=== PATIENT | male | born 1970 ===

== ENCOUNTER 2016-07-20 13:32 | Emergency (ER) | payer MEDICAID, OTHER ==
[2016-07-20 13:51] VITALS: BMI 27.3
[2016-07-20 13:56] VITALS: O2SAT 98
[2016-07-20] MEDS ORDERED: Sodium Chloride 0.9% 1,000 ML IV STA (15:42)
[2016-07-20] MEDS ORDERED: Sodium Chloride 0.9% 1,000 ML ONE (15:50)
[2016-07-20 16:04] LABS: BASO # 0.1 K/uL (0.0-0.2); BASO % 0.7 % (0.0-2.0); EOS # 0.3 K/uL (0.0-0.7); EOS % 3.5 % (0.0-4.0); HEMATOCRIT 43.3 % (35.0-51.0); LYMPH # 2.2 K/uL (1.0-4.3); LYMPH % 23.8 % (20.0-40.0); MEAN CELL VOLUME 83.7 fL (80.0-94.0); MEAN CORPUSCULAR HEMOGLOBIN 27.7 pg (27.0-31.0); MEAN CORPUSCULAR HGB CONC 33.1 g/dL (33.0-37.0); MEAN PLATELET VOLUME 10.5 fL (7.2-11.7); MONO # 0.8 K/uL (0.0-0.8); NRBC % 0.1 % (0.0-2.0); RED CELL DISTRIBUTION WIDTH 13.4 % (11.5-14.5); WHITE BLOOD COUNT 9.3 K/uL (4.8-10.8)
[2016-07-20 16:10] LABS: RBC URINE 4 /hpf (0-3); URINE BACTERIA RARE (<OCC); URINE BILIRUBIN NEGATIVE (NEGATIVE); URINE BLOOD NEGATIVE (NEGATIVE); URINE COLOR Yellow (YELLOW); URINE GLUCOSE (UA) NORMAL (Normal); URINE KETONE NEGATIVE (NEGATIVE); URINE LEUKOCYTE ESTERASE NEG Leu/uL (Negative); URINE PROTEIN NEGATIVE (NEGATIVE); URINE UROBILINOGEN NORMAL mg/dL (0.2-1.0)
[2016-07-20 16:13] LABS: CHLORIDE 100 mmol/L (98-107); SODIUM 138 mmol/L (132-148)
[2016-07-20 16:16] LABS: ALB/GLOB RATIO 1.2 (1.0-2.1); ALKALINE PHOSPHATASE 105 U/L (38-126); AST/SGOT 39 U/L (17-59); BLOOD UREA NITROGEN 17 mg/dL (9-20); TOTAL PROTEIN 8.2 g/dL (6.3-8.3)
[2016-07-20 16:17] LABS: ALT/SGPT 51 U/L (21-72); GLUCOSE,RANDOM 104 mg/dL (75-110)
[2016-07-20 16:22] LABS: BILIRUBIN,TOTAL 0.3 mg/dL (0.2-1.3); CARBON DIOXIDE 24 mmol/L (22-30); GFR AFRICAN-AMERICAN > 60
--- NOTE | 2016-07-20 16:38 | CT ---
PROCEDURE: CT Abdomen and Pelvis without intravenous contrast HISTORY: right flank pain, radiating to the groin COMPARISON: None. TECHNIQUE: Axial and reformatted coronal and sagittal CT images of the abdomen and pelvis were obtained without IV or oral contrast administration.. Contrast Dose: 0 Radiation dose: Total exam DLP = 550.04 mGy-cm. This CT exam was performed using one or more of the following dose reduction techniques: Automated exposure control, adjustment of the mA and/or kV according to patient size, and/or use of iterative reconstruction technique. FINDINGS: LOWER THORAX: Unremarkable. LIVER: Unremarkable. No gross lesion or ductal dilatation. GALLBLADDER AND BILE DUCTS: Unremarkable. PANCREAS: Unremarkable. No gross lesion or ductal dilatation. SPLEEN: Unremarkable. ADRENALS: Unremarkable. No mass. KIDNEYS AND URETERS: There is slightly high attenuation lesion exophytic from the midpole left kidney measures 1.5 centimeter may represent hemorrhagic cyst. Other etiology including neoplasm is not totally excluded. Nonspecific bilateral perinephric stranding seen. No evidence of nephrolithiasis or hydronephrosis. VASCULATURE: Unremarkable. No aortic aneurysm. BOWEL: Scattered colonic diverticulosis are seen without evidence of diverticulitis. No evidence of bowel obstruction. APPENDIX: Unremarkable. Normal appendix. PERITONEUM: Unremarkable. No free fluid. No free air. LYMPH NODES: Unremarkable. No enlarged lymph nodes. BLADDER: Unremarkable. REPRODUCTIVE: Unremarkable. BONES: No acute fracture. OTHER FINDINGS: Small fat containing left inguinal hernia seen. IMPRESSION: No evidence of nephrolithiasis or hydronephrosis. High attenuation exophytic lesion seen at the midpole left kidney measures 1.5 centimeter may represent hemorrhagic cyst or less likely renal neoplasm. Further assessment by ultrasound is suggested. Colonic diverticulosis without evidence of diverticulitis.
--- NOTE | 2016-07-20 16:59 | C.PDOC ---
History Of Present Illness 46-year-old male, presents to the emergency department with complaints of right flank pain that radiates to right testicle x6 months. Patient denies symptoms , nausea/vomiting, diarrhea, rashes or any other associated symptoms. No other complaints at this time. Time Seen by Provider: 07/20/16 14:20 Chief Complaint (Nursing): Male Genitourinary History Per: Patient History/Exam Limitations: no limitations Past Medical History Reviewed: Historical Data, Nursing Documentation, Vital Signs Vital Signs: Last Vital Signs Temp 98.4 F 07/20/16 19:08 Pulse 74 07/20/16 19:08 Resp 18 07/20/16 19:08 BP 144/88 07/20/16 19:08 Pulse Ox 98 07/20/16 19:08 Family History: States: Unknown Family Hx - Social History Hx Alcohol Use: Yes Hx Substance Use: No - Immunization History Hx Tetanus Toxoid Vaccination: No Hx Influenza Vaccination: No Hx Pneumococcal Vaccination: No Review Of Systems Except As Marked, All Systems Reviewed And Found Negative. Constitutional: Negative for: Fever, Chills Respiratory: Negative for: Shortness of Breath Gastrointestinal: Negative for: Nausea, Vomiting Genitourinary: Positive for: Scrotal Pain. Negative for: Dysuria, Frequency, Rash, Penile Pain Musculoskeletal: Positive for: Back Pain Skin: Negative for: Rash Neurological: Negative for: Weakness, Numbness, Headache, Dizziness Physical Exam - Physical Exam Appears: Non-toxic, No Acute Distress Skin: Warm, Dry, No Rash Head: Atraumatic, Normacephalic Eye(s): bilateral: Normal Inspection, PERRL Nose: Normal Oral Mucosa: Moist Lips: Normal Appearing Neck: Normal ROM Back: CVA Tenderness (right) Extremity: Normal ROM Neurological/Psych: Oriented x3, Normal Speech ED Course And Treatment - Laboratory Results Result Diagrams: 07/20/16 15:59 07/20/16 15:59 O2 Sat by Pulse Oximetry: 98 - CT Scan/US US Renal Other Rad Studies (CT/US): Read By Radiologist, Radiology Report Reviewed CT/US Interpretation: Accession No. : [id number]. Patient Name / ID : BRENDA CRABTREE / [id number]. Exam Date : 07/20/2016 17:01:16 ( Approved ). Study Comment : Sex / Age : M / 46Y. Creator : Des Ortega. Dictator : Des Ortega. Resource Center Teacher : Career Resource Specialist : Des Ortega. Approver2 : Report Date : 07/20/2016 18:26:33. My Comment : . PROCEDURE: Ultrasound of the Kidneys. HISTORY: ? Left renal hemorrhagic cyst vs neoplasm. COMPARISON: Comparison is made to the previous same-day CT of the abdomen and pelvis without contrast.. TECHNIQUE: Sonogram of the kidneys. FINDINGS: RIGHT KIDNEY: Measures: 11.4 x 5.9 x 5.9 cm. Normal in size, contour and echogenicity. No stone, solid mass lesion or hydronephrosis visualized. LEFT KIDNEY: Measures: 11.1 x 6.2 x 5.2 cm. Normal in size, contour and echogenicity. Mild fullness seen in the left kidney collecting system. There is a small cyst in the lower pole of the left kidney measures 1.4 x 1.4 x 1.3 centimeter. No stone, solid mass lesion or significant hydronephrosis visualized. OTHER FINDINGS: None. IMPRESSION: 1.4 centimeter cyst seen exophytic from the lower pole of the left kidney likely corresponding to the mildly high attenuation lesion seen in the previous CT. Slight fullness in the left kidney collecting system. Otherwise unremarkable study. CT ABD/PEL Other Rad Studies (CT/US): Read By Radiologist, Radiology Report Reviewed CT/US Interpretation: Accession No. : [id number]. Patient Name / ID : BRENDA CRABTREE / [id number]. Exam Date : 07/20/2016 16:01:48 ( Approved ). Study Comment : Sex / Age : M / 46Y. Creator : Des Ortega. Dictator : Des Ortega. Resource Center Teacher : Career Resource Specialist : Des Ortega. Approver2 : Report Date : 07/20/2016 16:36:17. My Comment : . PROCEDURE: CT Abdomen and Pelvis without intravenous contrast. HISTORY: right flank pain, radiating to the groin. COMPARISON: None. TECHNIQUE: Axial and reformatted coronal and sagittal CT images of the abdomen and pelvis were obtained without IV or oral contrast administration.. Contrast Dose: 0. Radiation dose: Total exam DLP = 550.04 mGy-cm. This CT exam was performed using one or more of the following dose reduction techniques: Automated exposure control, adjustment of the mA and/or kV according to patient size, and/or use of iterative reconstruction technique. FINDINGS: LOWER THORAX: Unremarkable. LIVER: Unremarkable. No gross lesion or ductal dilatation. GALLBLADDER AND BILE DUCTS : Unremarkable. PANCREAS: Unremarkable. No gross lesion or ductal dilatation. SPLEEN: Unremarkable. ADRENALS: Unremarkable. No mass. KIDNEYS AND URETERS: There is slightly high attenuation lesion exophytic from the midpole left kidney measures 1.5 centimeter may represent hemorrhagic cyst. Other etiology including neoplasm is not totally excluded. Nonspecific bilateral perinephric stranding seen. No evidence of nephrolithiasis or hydronephrosis. VASCULATURE: Unremarkable. No aortic aneurysm. BOWEL: Scattered colonic diverticulosis are seen without evidence of diverticulitis. No evidence of bowel obstruction. APPENDIX: Unremarkable. Normal appendix. PERITONEUM: Unremarkable. No free fluid. No free air. LYMPH NODES: Unremarkable. No enlarged lymph nodes. BLADDER: Unremarkable. REPRODUCTIVE: Unremarkable. BONES: No acute fracture. OTHER FINDINGS: Small fat containing left inguinal hernia seen. IMPRESSION: No evidence of nephrolithiasis or hydronephrosis. High attenuation exophytic lesion seen at the midpole left kidney measures 1.5 centimeter may represent hemorrhagic cyst or less likely renal neoplasm. Further assessment by ultrasound is suggested. Colonic diverticulosis without evidence of diverticulitis US TESTICULAR Other Rad Studies (CT/US): Read By Radiologist, Radiology Report Reviewed CT/US Interpretation: Accession No. : [id number]. Patient Name / ID : BRENDA CRABTREE / [id number]. Exam Date : 07/20/2016 17:14:18 ( Approved ). Study Comment : Sex / Age : M / 46Y. Creator : Des Ortega. Dictator : Des Ortega. Resource Center Teacher : Career Resource Specialist : Des Ortega. Approver2 : Report Date : 07/20/2016 18:29:42. My Comment : . HISTORY: right flank pain, down to right testicle. TECHNIQUE: Realtime sonography through the scrotum with color and doppler flow. COMPARISON: None Available. FINDINGS: RIGHT TESTICLE: Measures 5.4 x 2.4 x 3.4 cm. Normal echotexture and flow. RIGHT EPIDIDYMIS: Epididymal head measures 1.1 x 1.1 x 0.97 cm. Small cyst seen at the right epididymis head measures 0.8 x 0.3 x 0.5 centimeter. LEFT TESTICLE: Measures 5.2 x 2 x 3.1 cm. Normal echotexture and flow. LEFT EPIDIDYMIS: Epididymal head measures 1.9 x 0.8 x 1 cm. Grossly unremarkable appearance with normal flow. HYDROCELE: Trace/small right-sided hydrocele. VARICOCELE: Left-sided mild varicocele is noted. OTHER FINDINGS: None. IMPRESSION: No evidence of testicular torsion. Epididymal head small cyst seen. Mild left-sided varicocele. Small right-sided hydrocele. Medical Decision Making Medical Decision Making: Impression Flank pain/Testicular pain. Plan: * CT Abd/Pel * CMP, Lipase * CBC * IVF, Toradol * US Renal, Testicular * Urinalysis * Reassess and Disposition Disposition - Disposition Referrals: [facility] [Outside] Disposition: HOME/ ROUTINE Disposition Time: 18:43 Condition: STABLE Additional Instructions: Follow up with PMD/Clinic within 1-2 days. Return to ED if feel worse. Prescriptions: traMADol [Ultram] 50 mg PO Q6 #30 tab Instructions: Flank Pain (ED) Print Language: PERUVIAN - Clinical Impression Clinical Impression: Flank pain - Scribe Statement The provider has reviewed the documentation as recorded by the Ciara Faulkner All medical record entries made by the Shiibtiffani were at my direction and personally dictated by me. I have reviewed the chart and agree that the record accurately reflects my personal performance of the history, physical exam, medical decision making, and the department course for this patient. I have also personally directed, reviewed, and agree with the discharge instructions and disposition.
--- NOTE | 2016-07-20 18:39 | US ---
HISTORY: right flank pain, down to right testicle TECHNIQUE: Realtime sonography through the scrotum with color and doppler flow. COMPARISON: None Available. FINDINGS: RIGHT TESTICLE: Measures 5.4 x 2.4 x 3.4 cm. Normal echotexture and flow. RIGHT EPIDIDYMIS: Epididymal head measures 1.1 x 1.1 x 0.97 cm. Small cyst seen at the right epididymis head measures 0.8 x 0.3 x 0.5 centimeter. LEFT TESTICLE: Measures 5.2 x 2 x 3.1 cm. Normal echotexture and flow. LEFT EPIDIDYMIS: Epididymal head measures 1.9 x 0.8 x 1 cm. Grossly unremarkable appearance with normal flow. HYDROCELE: Trace/small right-sided hydrocele. VARICOCELE: Left-sided mild varicocele is noted. OTHER FINDINGS: None. IMPRESSION: No evidence of testicular torsion. Epididymal head small cyst seen. Mild left-sided varicocele. Small right-sided hydrocele.
--- NOTE | 2016-07-20 18:39 | US ---
PROCEDURE: Ultrasound of the Kidneys HISTORY: ? Left renal hemorrhagic cyst vs neoplasm COMPARISON: Comparison is made to the previous same-day CT of the abdomen and pelvis without contrast.. TECHNIQUE: Sonogram of the kidneys. FINDINGS: RIGHT KIDNEY: Measures: 11.4 x 5.9 x 5.9 cm. Normal in size, contour and echogenicity. No stone, solid mass lesion or hydronephrosis visualized. LEFT KIDNEY: Measures: 11.1 x 6.2 x 5.2 cm. Normal in size, contour and echogenicity. Mild fullness seen in the left kidney collecting system. There is a small cyst in the lower pole of the left kidney measures 1.4 x 1.4 x 1.3 centimeter. No stone, solid mass lesion or significant hydronephrosis visualized. OTHER FINDINGS: None. IMPRESSION: 1.4 centimeter cyst seen exophytic from the lower pole of the left kidney likely corresponding to the mildly high attenuation lesion seen in the previous CT. Slight fullness in the left kidney collecting system. Otherwise unremarkable study.
[2016-07-20 19:15] VITALS: BP 144/88; PULSE 74; RESP 18; TEMP 98.4
== END 2016-07-20 19:16 | disposition home or self-care (01) ==
LOC: C.ER 13:32
DX: R10.31 Right lower quadrant pain (principal); N50.811 Right testicular pain
CPT/HCPCS: 74176; 76770; 76870; 80053; 81001; 83690; 85025; 96361; 96374; 99285; J1885; J7040